=== PATIENT | female | born 1995 | race Caucasian/White ===

== ENCOUNTER 2019-02-23 06:26 | Day surgery (SDC) | payer BC ==
[2019-02-18 15:20] VITALS: BMI 27.1
[~2019-02-23 06:26] MED LIST: DEXAMETHASONE SOD PHOSPHATE 10 MG/ML 1 ML VIAL IV ONE; DEXAMETHASONE SOD PHOSPHATE 4 MG/ML 1 ML VIAL IV ONE; FAMOTIDINE 20 MG/2 ML VIAL IV ONE; HYDROmorphone 0.5 MG/0.5 ML SYRINGE IVP PRN; LACTATED RINGERS 1,000 ML IV SCH; LIDOCAINE 1% 20 ML VIAL (10MG/ML) FOR IV START INTRADERMA PRN; MIDAZOLAM 2 MG/2 ML VIAL IV PRN; ONDANSETRON 4 MG/2 ML VIAL IVP ONE; SCOPOLAMINE 1.5MG/72HR PATCH TRANSDERM ONE
[2019-02-23] MEDS ORDERED: MIDAZOLAM 2 MG/2 ML VIAL IVP ONE (07:02)
[2019-02-23] MEDS ORDERED: PROPOFOL 10 MG/ML 20 ML VIAL IV ONE (07:21)
[2019-02-23] MEDS ORDERED: DEXAMETHASONE SOD PHOS (MDV) 100 MG/10 ML VIAL ONE (07:21)
[2019-02-23] MEDS ORDERED: SUCCINYLCHOLINE CHLORIDE 100 MG/5 ML SYR IV ONE (07:21)
[2019-02-23] MEDS ORDERED: MIDAZOLAM 2 MG/2 ML VIAL ONE (07:21)
[2019-02-23] MEDS ORDERED: fentaNYL (PF) 50 MCG/ML 2 ML AMP ONE (07:21)
[2019-02-23] MEDS ORDERED: LIDOCAINE 1% INJ 10MG/ML (20 ML MDV) ONE (07:21)
--- NOTE | 2019-02-23 08:06 | P.OP ---
Date of Procedure: 02/23/19 Preoperative Diagnosis: Chronic cryptic tonsillitis Postoperative Diagnosis: Same Procedure(s) Performed: Tonsillectomy Anesthesia: JENNIFER Surgeon: Kristian Alexander Estimated Blood Loss (ml): 10 Pathology: other (Bilateral tonsils) Condition: stable Disposition: PACU Indications for Procedure: This 23-year-old white female with significant was with chronic cryptic tonsillitis with chronic tonsilliths and halitosis Operative Findings: Tonsils +3 bilaterally they're cryptic was sulfur granules in the crypts right greater than left Description of Procedure: PROCEDURE: The patient brought to the operating suite and was placed in the supine position. The patient underwent induction of anesthesia with oral endotracheal intubation without difficulty. The patient is positioned with a head donut and shoulder roll. The patient was prepped and draped in the usual aseptic fashion. The left tonsil was then grasped with a curved Allis clamp and then dissected from the tonsillar fossa in a superior to inferior direction using both blunt and electrocautery dissection in the superior to inferior direction until the tonsil was removed. Once the tonsil was removed, hemostasis was gained with suction cautery. Once hemostatic was obtained the attention was turned to the right where the right tonsil was removed exactly as the left had been. Once this tonsil was removed, hemostasis was gained with suction cautery. Once this tonsil was removed, hemostasis was gained with suction cautery. Once hemostasis was obtained and remained good in both tonsillar fossae , the patient was suction in oral gastric fashion and the McIvor mouth gag was removed. The patient was allowed to emerge from general anesthesia having tolerated the procedure well. She was extubated in the operating suite and transferred to the postoperative recovery area in satisfactory condition.
[2019-02-23 08:24] VITALS: TEMP 97
[2019-02-23 08:32] VITALS: RESP 16
[2019-02-23 09:15] VITALS: BP 113/74
[2019-02-23] MEDS ORDERED: HYDROcodone/APAP 7.5-325MG 1 EACH TAB PO ONE (09:21)
[2019-02-23 09:44] VITALS: PULSE 86
== END 2019-02-23 09:55 | disposition home or self-care (01) ==
LOC: OR 06:26
PROVIDERS: ATTEND Otolaryngology
DX: J35.01 Chronic tonsillitis (principal); R19.6 Halitosis; J45.909 Unspecified asthma, uncomplicated; Z82.5 Family history of asthma and other chronic lower respiratory diseases; Z88.0 Allergy status to penicillin
CPT/HCPCS: 81025; 88304; 42826; J2250; J1100 ×2; J2405; J0690; J2001; J3010; J0330; J2704